=== PATIENT | female | born 1990 | race Caucasian/White ===

== ENCOUNTER 2020-09-08 13:16 | Emergency (ER) | payer MEDICAID, SELFPAY ==
[2020-09-08 13:25] VITALS: BP 107/65; PULSE 87; RESP 18; TEMP 37.1; O2SAT 97
--- NOTE | 2020-09-08 13:30 | DI.US_ITS ---
Exam(s) US OB 1ST TRIMESTER EXAM: US OB 1ST TRIMESTER CLINICAL HISTORY: pos preg test one week ago, now with vaginal bleed. TECHNIQUE: First trimester obstetrical ultrasound was performed. COMPARISON: No exams were available for comparison FINDINGS: There is gestational contents within the cervical canal, including yolk sac and non viable pole . Findings are consistent with incomplete spontaneous . Right ovary measures 2.5 x 1.6 x 1.6 cm. Left ovary measures 2.6 x 1.21.1 cm. Corpus luteal cyst is seen in the right ovary measuring approximately 1.6 x 1.2 cm. There is no free fluid in the adnexal regions nor in the cul-de-sac.. IMPRESSION:: 1. Findings are consistent with ongoing spontaneous . The gestational contents are presently within the endocervical canal. 2. No significant adnexal findings and no free fluid. DATA REPOSITORY:
[2020-09-08 13:52] LABS: Bilirubin Negative (Negative); Blood Trace-intact (Negative); Clarity Clear (Clear); Glucose Negative (Negative); Ketones Negative (Negative); Leukocyte Esterase Negative (Negative); Nitrite Negative (Negative); Urobilinogen 0.2 EU/dL (Up TO 0.2); pH 6.5 (5-8)
[2020-09-08 13:59] LABS: Bacteria Negative HPF (Negative); C & S Indicated? No; Casts Negative LPF (Negative); Crystals Negative HPF (Negative); Epithelial Cells Few HPF (Negative); Mucus Negative (Negative); RBC 0-2 HPF (0-2)
[2020-09-08 14:26] LABS: Abs Immature Grans 0.05 10^3/uL (0.0-0.06); Absolute Eosinophil Count 0.11 10^3/uL (0.0-0.7); Absolute Lymphocyte Count 3.03 10^3/uL (1.2-3.4); Absolute Monocyte Count 0.83 10^3/uL (0.1-0.8); Basophils % 0.2; Eosinophils % 0.9; HGB 12.9 g/dL (11.2-15.7); Immature Grans % 0.4; Lymphocytes % 25.2; MCH 29.8 pg (27.0-33.0); MCHC 33.1 % (32.0-36.0); MCV 90.1 fL (80-95); MPV 11.5 fL (8.0-11.0); Monocytes % 6.9; Neutrophils % 66.4; Nucleated RBC 0 %; Platelet Count 336 10^3/uL (130-400); RBC 4.33 10^6/uL (3.93-5.22); RDW-SD 39.8 fL; WBC 12.01 10^3/uL (4.4-10.8)
[2020-09-08 14:27] LABS: Absolute Basophil Count 0.02 10^3/uL (0.0-0.2); Absolute Neutrophil Count 7.97 10^3/uL (1.2-6.7)
--- NOTE | 2020-09-08 15:29 | ED.GENADUL_ITS ---
Discharge Plan Disposition Patient Disposition: HOME Condition: Good Discharge Details Clinical Impression: Spontaneous Primary Care Provider: Sheba Reina ED Provider: Daly Razo Home Meds and New Rx's Prescriptions: No Action No Known Home Meds RF: 0 Discharge Instructions Additional Instructions: Please follow-up at your scheduled appointment on Tuesday and return should you develop fever, chills, if you go through more than 1 tampon or pad an hour, worsening pain, or with any new or progressing symptoms You may take Tylenol or ibuprofen as needed for discomfort, 650 mg of Tylenol or 600 mg of ibuprofen Discharge Data Discharge Date/Time-TO BE ENTERED AT DEPARTURE: 09/08/20 16:11 Medical Decision Making Patient is hemodynamically stable, she is B+, she has a spontaneous , she is approximately 8 weeks She is made aware of the finding Case discussed with Dr. Quintero who will evaluate the patient. Afebrile, nontoxic Dr. Mosher to evaluate patient at 1559 will see pt in office on Tuesday B+, no indication for rhogam no indication for pelvic exam at this time, reported minimal bleeding with close f/u return precautions discussed no evidence of ectopic noted on US per radiology interpretation, yolk sac and pole without fhr concerning for demise per radiologist and my review Differential Diagnosis Differential Diagnosis: Threatened , miscarriage, subchorionic h emorrhage, ectopic pregnanc Medical Records Medical records reviewed: Yes I reviewed the patient's medical records. Lab Data Lab results reviewed: Yes I reviewed the patient's lab results. HPI General Mode of arrival: ambulatory . Date/Time Provider Initiated Documentation: 09/08/20 13:35 . Limitations to Documentation: no limitations . Information obtained by: patient . HPI Narrative: This 30-year-old female who is otherwise healthy presents with report of some vaginal bleeding that started yesterday. She thinks she is approximately 2 months . She denies any fever or chills. She has some cramping in her lower abdomen. She denies any urinary symptoms. This is her first reported . She states she is bleeding minimally at this time. Related Data Home Medications Medication Instructions Recorded Confirmed Unknown [No Known Home Meds] 09/08/20 09/08/20 Allergies Allergy/AdvReac Type Severity Reaction Status Date / Time apple Allergy Mild Skin Rash Unverified 09/08/20 13:30 Sulfa (Sulfonamide Allergy Unknown Unknown Unverified 09/08/20 13:30 Antibiotics) most soap (Dove is ok) AdvReac Uncoded 09/08/20 13:30 General Stated Complaint: RN DOCUMENTATION TEDDY: 3 Review of Systems Narrative: Review of systems obtained x7 aside from where indicated in HPI [facility] Medical History (Updated 09/08/20 @ 16:05 by TISH Hill) Attention deficit hyperactivity disorder, combined type Cervical dysplasia followed by Jacques Carrillo Mild mental retardation (I.Q. 50-70) Surgical History (Updated 12/27/13 @ 17:08 by Augustine Thornton DO) ganglion cyst excision left wrist. Social History Smoking/Tobacco Use Status: Current every day Smoking risk assessment performed?: Yes Alcohol Intake: former Drug use: Daily Substance use type: marijuana Do you feel safe at home: Yes Do you feel safe in your relationship?: Yes Exam Const General: cooperative Orientation: alert and oriented x3 Resp Effort & Inspection: normal respiratory effort Cardio Rate: regular rate GI Other: Mild lower abdominal tenderness Skin General skin exam: no rashes or lesions noted Neuro General: patient alert and patient oriented x3 Course Vital Signs Vital signs: Vital Signs Temperature 37.1 C 09/08/20 13:25 Pulse 87 09/08/20 13:25 Respiratory Rate 18 09/08/20 13:25 Blood Pressure 107/65 09/08/20 13:25 Pulse Oximetry 97 09/08/20 13:25 Temperature 37.1 C 09/08/20 13:25 Temperature Source Temporal Artery Scan 09/08/20 13:25 Pulse 87 09/08/20 13:25 Respiratory Rate 18 09/08/20 13:25 Respiratory Effort Non-Labored 09/08/20 13:30 Blood Pressure 107/65 09/08/20 13:25 Blood Pressure Position Sitting 09/08/20 13:25 Pulse Oximetry 97 09/08/20 13:25 Oxygen Delivery Method Room Air 09/08/20 13:25 Oxygen Flow Rate 0 09/08/20 13:25 Pain Level 5 09/08/20 13:25 Lab/Test Results Lab/Test Results: Laboratory Tests Range/Units 09/08/20 09/08/20 09/08/20 13:42 14:12 14:12 WBC (4.4-10.8) 10^3/uL 12.01 H RBC (3.93-5.22) 10^6/uL 4.33 Hgb (11.2-15.7) g/dL 12.9 Hct (36.0-46.0) % 39.0 MCV (80-95) fL 90.1 MCH (27.0-33.0) pg 29.8 MCHC (32.0-36.0) % 33.1 RDW (11.7-14.6) % 12.0 Plt Count (130-400) 10^3/uL 336 MPV (8.0-11.0) fL 11.5 H Immature Gran % 0.4 Neutrophils % 66.4 Lymphocytes % 25.2 Monocytes % 6.9 Eosinophils % 0.9 Basophils % 0.2 Nucleated RBC % % 0 Absolute Neutrophils (1.2-6.7) 10^3/uL 7.97 H Absolute Lymphocytes (1.2-3.4) 10^3/uL 3.03 Absolute Monocytes (0.1-0.8) 10^3/uL 0.83 H Absolute Eosinophils (0.0-0.7) 10^3/uL 0.11 Absolute Basophils (0.0-0.2) 10^3/uL 0.02 Urine Color (Yellow) Yellow Urine Clarity (Clear) Clear Urine pH (5-8) 6.5 Ur Specific [place] (1.005-1.025) 1.010 Urine Protein (Negative) mg/dL Negative Urine Ketones (Negative) mg/dL Negative Urine Blood (Negative) Trace-intact H Urine Nitrite (Negative) Negative Urine Bilirubin (Negative) Negative Urine Urobilinogen (Up TO 0.2) EU/dL 0.2 Ur Leukocyte Esterase (Negative) Negative Urine RBC (0-2) HPF 0-2 Urine WBC (0-5) HPF 3-5 Ur Epithelial Cells (Negative) HPF Few Urine Crystals (Negative) HPF Negative Urine Bacteria (Negative) HPF Negative Urine Casts (Negative) LPF Negative Urine Mucus (Negative) Negative Ur Culture Indicated? No Urine Glucose (Negative) mg/dL Negative Patient ABO/Rh B Positive Antibody Screen Negative POC- Test(urine) Positive
[2020-09-08 16:03] LABS: HCG Quant, Pregnancy 14465 mIU/mL (1-3)
[2020-09-08 18:33] LABS: ALT 13 U/L (14-59); AST 9 U/L (15-37); Albumin 3.6 g/dL (3.4-5.0); Alkaline Phosphatase 82 U/L (46-116); Anion Gap 6.6 mmol/L (3-11); BUN 6 mg/dL (7-18); Bilirubin, Total 0.3 mg/dL (0.2-1.0); CO2 30.4 mmol/L (21.0-32.0); CREATININE 0.7 mg/dL (0.55-1.02); Chloride 104 mmol/L (98-107); Glucose 81 mg/dL (74-106); Potassium 3.7 mmol/L (3.5-5.1); Sodium 141 mmol/L (136-145); Total Protein 7.5 g/dL (6.4-8.2)
== END 2020-09-08 16:11 | disposition home or self-care (01) ==
PROVIDERS: Student in an Organized Health Care Education/Training Program; Emergency Provider Physician Assistant; PCP Nurse Practitioner Family
DX: O03.9 Complete or unspecified spontaneous abortion without complication (principal)
CPT/HCPCS: 36415; 80053; 81025; 86850; 86900; 86901; 99284; 76801; 81003; 81015; 84702; 85025; 99283

== ENCOUNTER 2021-05-15 18:45 | Emergency (ER) | payer MEDICAID, SELFPAY ==
[2021-05-15 18:47] VITALS: BP 121/99; PULSE 89; RESP 18; TEMP 36; O2SAT 97
[2021-05-15 19:04] VITALS: RESP 12
[2021-05-15 19:15] VITALS: PULSE 78; O2SAT 98
--- NOTE | 2021-05-15 19:26 | W.ED.GENAD ---
Discharge Plan Disposition Patient Disposition: HOME Condition: Stable Discharge Details Clinical Impression: Accidental overdose Primary Care Provider: Sheba Reina ED Provider: Daly Razo Home Meds and New Rx's Prescriptions: New naloxone [Narcan] 4 mg/actuation spray,non-aerosol 4 mg intranasal Q2-3M PRNQty: 2 0RF Rx Instructions: spray 1 dose into ONE nostril; alternate nostrils w each dose until help arrives Discharge Instructions Additional Instructions: Please work with assistant women's basketball coach We are here if you like to start any medication assisted therapy I am giving you to the [facility] recovery coaches please return should you have new or worsening complaints I have supplied you with Narcan, hopefully we do not continue to use and this medication was not necessary that you have it should you need it Referrals: [facility] [Outside] [facility] [Outside] Sheba Reina [Primary Care Provider] - Discharge Data Discharge Date/Time-TO BE ENTERED AT DEPARTURE: 05/15/21 20:26 Medical Decision Making pt declines MAT initiation, but is willing to speak with [facility] Reconvery Will f/u with pcp has resources with set up return precautions discussed dc'd home with stable vitals, alert, oriented Narcan rx supplied Medical Records Medical records reviewed: Yes I reviewed the patient's medical records. HPI General Date/Time Provider Initiated Documentation: 05/15/21 18:52. HPI Narrative: This 31-year-old female presents status post inhalation overdose. She received Narcan from bystander. EMS was called and transported patient to the emergency department. She denies any chest pain, shortness of breath, dizziness, weakness. She denies any additional illicit drug use. She endorses smoking fentanyl just prior to arrival approximately cough. She denies any chance of . She denies any injuries. Denies any current nausea or vomiting. denies SI/HI. Related Data Home Medications Medication Instructions Recorded Confirmed naloxone 4 mg/actuation nasal 4 mg INTRANASAL Q2-3M PRN #2 ea 05/15/21 spray (Narcan) Previous Rx's Medication Instructions Recorded naloxone 4 mg/actuation nasal 4 mg INTRANASAL Q2-3M PRN #2 ea 05/15/21 spray (Narcan) Allergies Allergy/AdvReac Type Severity Reaction Status Date / Time apple Allergy Mild Skin Rash Unverified 05/15/21 18:51 Sulfa (Sulfonamide Allergy Unknown Unknown Unverified 05/15/21 18:51 Antibiotics) most soap (Dove is ok) AdvReac Uncoded 05/15/21 18:51 General Stated Complaint: OD/Poison TEDDY: 2 Review of Systems All systems reviewed & are unremarkable except as noted in HPI and below PFSH All Active Problems (Updated 05/15/21 @ 19:52 by TISH Hill) Spontaneous (Acute) Accidental overdose (Acute) Medical History (Updated 05/15/21 @ 19:52 by TISH Hill) Attention deficit hyperactivity disorder, combined type Cervical dysplasia followed by Jacques Carrillo Mild mental retardation (I.Q. 50-70) Surgical History (Updated 12/27/13 @ 17:08 by Augustine Thornton DO) ganglion cyst excision left wrist. Social History Smoking/Tobacco Use Status: Current every day Tobacco Type: cigarettes Smoking risk assessment performed?: Yes Alcohol Intake: former Drug use: Daily Substance use type: marijuana Details: fentanyl occasionally Do you feel safe at home: Yes Do you feel safe in your relationship?: Yes Exam Const General: cooperative, comfortable and no acute distress HENMT Head: normal to inspection Eyes Pupils: PERRL Resp Effort & Inspection: normal respiratory effort Auscultation: clear to auscultation bilaterally Cardio Rate: regular rate Rhythm: regular rhythm GI Inspection: normal to inspection Skin General skin exam: no rashes or lesions noted Neuro General: patient alert and patient oriented x3 Course Vital Signs Vital signs: Vital Signs Temperature 36 C L 05/15/21 18:47 Pulse 89 05/15/21 18:47 Respiratory Rate 18 05/15/21 18:47 Blood Pressure 121/99 H 05/15/21 18:47 Pulse Oximetry 97 05/15/21 18:47 Temperature 36 C L 05/15/21 18:47 Temperature Source Temporal Artery Scan 05/15/21 18:47 Pulse 78 05/15/21 19:15 Respiratory Rate 12 05/15/21 19:04 Respiratory Effort Non-Labored 05/15/21 19:04 Respiratory Depth Normal 05/15/21 19:04 Respiratory Pattern Normal 05/15/21 19:04 Blood Pressure 121/99 H 05/15/21 18:47 Blood Pressure Position Sitting 05/15/21 18:47 Pulse Oximetry 98 05/15/21 19:15 Oxygen Delivery Method Room Air 05/15/21 19:15 Oxygen Flow Rate 0 05/15/21 19:15
--- NOTE | 2021-05-15 19:31 | NUR.NOTE ---
Nursing Note: Around 19:35, Absorption And Adsorption Engineer, Inez, arrived to speak with the patient.
[2021-05-15 20:26] VITALS: BP 121/99; PULSE 78; RESP 12; TEMP 36; O2SAT 98
== END 2021-05-15 20:26 | disposition home or self-care (01) ==
PROVIDERS: Emergency Provider Physician Assistant; PCP Nurse Practitioner Family
DX: T40.411A Poisoning by fentanyl or fentanyl analogs, accidental (unintentional), initial encounter (principal)
CPT/HCPCS: 99283

== ENCOUNTER 2021-08-27 17:46 | Emergency (ER) | payer MEDICAID, SELFPAY ==
[2021-08-27 17:48] VITALS: BP 126/112; PULSE 74; RESP 12; TEMP 35.4; O2SAT 95
--- NOTE | 2021-08-27 17:55 | ED.GENADUL_ITS ---
Discharge Plan Disposition Patient Disposition: HOME Condition: Improving Discharge Details Clinical Impression: Odontalgia Primary Care Provider: Sheba Reina ED Provider: Teddy Mcneal Home Meds and New Rx's Prescriptions: New penicillin V potassium 500 mg tablet 500 mg PO TID 10 Days Qty: 30 0RF Continued naloxone [Narcan] 4 mg/actuation spray,non-aerosol 4 mg intranasal Q2-3M PRNQty: 2 0RF Rx Instructions: spray 1 dose into ONE nostril; alternate nostrils w each dose until help arrives Discharge Instructions Instructions: Toothache (ED), Adult Overdose (ED) Additional Instructions: Take penicillin as prescribed until finished. Follow-up with rhythmic gymnastics coach as discussed with them. Return for any acute concerns. Medical Decision Making This is a 31-year-old female brought by EMS after a bystander called them. She had smoked some fentanyl, is unclear of whether she had an altered mental state as she does not remember. She was not given Narcan. She was evaluated by EMS and then transported as she wished to speak to someone regarding recovery services. She states she was not trying to harm her self and she does not have any current depression or thoughts of harming herself or others. Patient underwent medical screening examination. She did have early periapical dental infection that I will treat with penicillin. Patient was evaluated by rhythmic gymnastics coach and a plan was formulated for outpatient follow-up. Patient remained stable and improved. She is appropriate for discharge with a prescription for penicillin. HPI General Mode of arrival: ambulatory . Date/Time Provider Initiated Documentation: 08/27/21 17:47 . Limitations to Documentation: no limitations . Information obtained by: patient and EMS . History of Present Illness 31 year old F presents to the emergency department with the chief complaint of Accidental overdose, described as mild, and it has been now resolved. No relieving factors improve symptom(s), No exacerbating factors reported . Patient notes denies chest pain, cough, headaches and shortness of breath. Patient did receive the following treatments prior to arrival, none Related Data Home Medications Medication Instructions Recorded Confirmed naloxone 4 mg/actuation nasal 4 mg intranasal Q2-3M PRN #2 ea 08/27/21 spray (Narcan) penicillin V potassium 500 mg 500 mg PO TID 10 days #30 tabs 08/27/21 tablet Previous Rx's Medication Instructions Recorded naloxone 4 mg/actuation nasal 4 mg intranasal Q2-3M PRN #2 ea 08/27/21 spray (Narcan) penicillin V potassium 500 mg 500 mg PO TID 10 days #30 tabs 08/27/21 tablet Allergies Allergy/AdvReac Type Severity Reaction Status Date / Time apple Allergy Mild Skin Rash Unverified 08/27/21 17:56 Sulfa (Sulfonamide Allergy Unknown Unknown Unverified 08/27/21 17:56 Antibiotics) most soap (Dove is ok) AdvReac Uncoded 08/27/21 17:56 General TEDDY: 2 Review of Systems Narrative: Denies any complaints except left ear pain and tooth pain. PFSH All Active Problems (Updated 08/27/21 @ 18:08 by Teddy Mcneal MD) Spontaneous (Acute) Odontalgia (Acute) Medical History Attention deficit hyperactivity disorder, combined type Cervical dysplasia followed by Jacques Carrillo Mild mental retardation (I.Q. 50-70) Surgical History ganglion cyst excision left wrist. Social History Smoking/Tobacco Use Status: Current every day Tobacco Type: cigarettes Smoking risk assessment performed?: Yes Alcohol Intake: former Drug use: Daily Substance use type: marijuana and opiates Details: has not had fentanyl in a few months. this is a relapse. Do you feel safe at home: Yes Do you feel safe in your relationship?: Yes Exam Narrative Exam Narrative: GEN: awake, alert, oriented 3. Pleasant, well groomed, interactive. HEAD: Normocephalic, atraumatic ENT: Mucous membranes moist, oropharynx poor dentition, tender left mandibular premolars, tympanic membranes visualized and unremarkable bilaterally,, External ear exam unremarkable EYES: PERRL, EOMI NECK: Full ROM, no RAJ, no menigismus CHEST/RESP: Nontender, clear to auscultation bilateral, no wheeze/rhonchi/rales CARDIOVASCULAR: RRR, no murmur, rub natalie. 2+ Rad pulse bilateral ABDOMEN: Soft, nontender, no mass. +Bowel sounds EXT: Full ROM, no edema, no rash Neuro: Grossly normal neurologic exam, conversant, interactive. Psych: Speech fluent, thoughts congruent, affect normal
[2021-08-27 18:08] VITALS: RESP 12
[2021-08-27 18:10] VITALS: BP 114/67; PULSE 54; PULSE 68; RESP 17; O2SAT 95
[2021-08-27 18:11] VITALS: PULSE 56; RESP 14; O2SAT 98
[2021-08-27 18:20] VITALS: PULSE 57; RESP 15; O2SAT 96
[2021-08-27] MEDS: Penicillin V POTASSIUM 500 MG TAB, 4 TABS/BTL PO (18:23)
[2021-08-27 19:03] VITALS: BP 113/47; PULSE 58; RESP 16; O2SAT 100
== END 2021-08-27 19:12 | disposition home or self-care (01) ==
LOC: ER 19:26
PROVIDERS: Emergency Provider Emergency Medicine; PCP Nurse Practitioner Family
DX: K08.89 Other specified disorders of teeth and supporting structures (principal); K04.7 Periapical abscess without sinus
CPT/HCPCS: 99283

== ENCOUNTER 2022-01-06 18:06 | Emergency (ER) | payer MEDICAID, SELFPAY ==
[2022-01-06] VITALS (22 sets, daily range): BP systolic 104–139; BP diastolic 71–96; PULSE 61–94; RESP 7–26; TEMP 36.7; O2SAT 95–99
--- NOTE | 2022-01-06 18:56 | ED.GENADUL_ITS ---
Discharge Plan Disposition Patient Disposition: AGAINST MEDICAL ADVICE Condition: Stable Discharge Details Clinical Impression: Accidental fentanyl overdose Primary Care Provider: Sheba Reina ED Provider: Enio Pizano Home Meds and New Rx's Prescriptions: Continued naloxone [Narcan] 4 mg/actuation spray,non-aerosol 4 mg intranasal Q2-3M PRNQty: 2 0RF Rx Instructions: spray 1 dose into ONE nostril; alternate nostrils w each dose until help arrives Discharge Instructions Instructions: Adult Overdose (ED) Additional Instructions: It would have appeared as though you accidentally overdosed on fentanyl and responded well to Narcan. As we discussed I would recommend that she stay in the ER for 2-3-hour observations as Narcan can wear off and fentanyl has a longer half-life. You understand this and have elected to leave AGAINST MEDICAL ADVICE. Please follow the instructions given to you by the recovery agent. Please watch for new or worsening symptoms and return immediately to the ER. Lastly, please contact your primary care provider tomorrow to discuss your ER visit and need for outpatient reevaluation. Medical Decision Making Thank you this is a 31-year-old who presents after an accidental fentanyl overdose, received Narcan via EMS and now asymptomatic. Patient states that she has not used drugs in approximately 1 month and relapsed today. She has a therapist but no recovery agent. At this time she has no acute medical concerns or complaints. I do not believe that any laboratory values with change her overall disposition. She is agreeable to speaking with our recovery agent and being observed in the ER professional athletes coach completed her evaluation. Please see her note. Patient is thankful for the recovery agent is excited to follow-up with her as an outpatient Patient is no longer anxious. She appears well, nontoxic. At this time she is requesting discharge. She has not been observed in the ER for more than approximately 1-1/2 hours. We discussed the overall half-life of fentanyl versus Narcan, the possibility of becoming unresponsive once again as the Narcan wears off. She understands this risk but continues to request discharge. She states that she has a safe place to go this evening with people who can monitor her. Patient appears clinically sober, is of sound mind, and based upon my clinical examination has the capacity to make their own decisions. We have offered treatment options and discussed the the risks and benefits of these options and refusing these options, including and/or disability specific to the patient's pathology. Pt is able to discuss and understands the risks and benefits and alternatives of treatment and refusing treatment. The patient still chooses to leave before evaluation and treatment can be completed AGAINST MEDICAL ADVICE. This documentation was generated using [employer] system, please disregard any oddities of phrase or misspellings. Medical Records Medical records reviewed: Yes I reviewed the patient's medical records. HPI General Mode of arrival: EMS . Date/Time Provider Initiated Documentation: 01/06/22 18:10 . Limitations to Documentation: no limitations . Information obtained by: patient and EMS . HPI Narrative: This is a 31-year-old female, reports that she has been clean from fentanyl for approximately 1 month, smokes fentanyl today, friends called EMS when she became unresponsive, EMS gave her Narcan on arrival and she is now at baseline. She reports that overall she is anxious, ashamed of her actions but denies any attempt to harm herself and has no desire to harm others. She denies recent illness or trauma. Denies any other alcohol or drug use. She has a therapist but would be open to speaking with a recovery agent. Related Data Home Medications Medication Instructions Recorded Confirmed naloxone 4 mg/actuation nasal 4 mg intranasal Q2-3M PRN #2 ea 08/27/21 01/06/22 spray (Narcan) Previous Rx's Medication Instructions Recorded naloxone 4 mg/actuation nasal 4 mg intranasal Q2-3M PRN #2 ea 08/27/21 spray (Narcan) Allergies Allergy/AdvReac Type Severity Reaction Status Date / Time apple Allergy Mild Skin Rash Unverified 01/06/22 18:06 Sulfa (Sulfonamide Allergy Unknown Unknown Unverified 01/06/22 18:06 Antibiotics) most soap (Dove is ok) AdvReac Uncoded 01/06/22 18:06 General Stated Complaint: OD/Poison TEDDY: 3 Review of Systems Constitutional Constitutional: Denies fatigue, Denies fever(s), Denies headache(s) and Denies weakness Eyes Eyes: Denies change in vision ENT Ears, Nose, Mouth, and Throat: Denies headache(s) and Denies neck pain Cardiovascular Cardiovascular: Denies chest pain and Denies dyspnea Respiratory Respiratory: Denies cough and Denies dyspnea Gastrointestinal Gastrointestinal: Denies abdominal pain, Denies nausea and Denies vomiting Musculoskeletal Musculoskeletal: Reports back pain (Chronic) and Denies neck pain Integumentary/Breasts Skin/Breast: Denies rash Neurologic Neurologic: Denies headache(s) and Denies weakness Psychiatric Psychiatric: Reports anxiety, Denies homicidal ideation and Denies suicidal ideation Endocrine Endocrine: Denies fatigue PFSH All Active Problems (Updated 01/06/22 @ 19:40 by TISH Huang) Spontaneous (Acute) Accidental fentanyl overdose (Acute) Medical History Attention deficit hyperactivity disorder, combined type Cervical dysplasia followed by Jacques Carrillo Mild mental retardation (I.Q. 50-70) Surgical History ganglion cyst excision left wrist. Social History Smoking/Tobacco Use Status: Current every day Tobacco Type: cigarettes Smoking risk assessment performed?: Yes Alcohol Intake: former Drug use: Daily Substance use type: marijuana and opiates Details: this is a relapse. Do you feel safe at home: Yes Do you feel safe in your relationship?: Yes Exam Const General: cooperative, healthy appearing, comfortable, no acute distress and anxious Orientation: alert, awake and oriented x3 HENMT Head: normal to inspection, normocephalic and atraumatic Face and sinus: normal facial exam Mouth: moist mucous membranes Eyes General: appearance normal, both eyes and all related structures Conjunctivae: conjunctivae normal Neck Neck: normal visual inspection, full ROM, trachea midline and supple Resp Effort & Inspection: normal respiratory effort and able to speak in complete sentences Auscultation: clear to auscultation bilaterally Cardio Rate: regular rate Rhythm: regular rhythm GI Palpation: soft and nontender Back/Spine/Pelvis Back: No back tenderness Skin General skin exam: no rashes or lesions noted Neuro General: patient alert, patient awake, moves all extremities and no focal motor deficits Cognition: normal cognition Speech: speech normal Gait: normal gait Sensory Exam: no sensory deficits noted Extrem General: normal to inspection and full ROM Psych Appearance: grossly normal Mental Status: mental status grossly normal Speech and Movement: speech and movement normal Mood: anxious mood Affect: animated Attitude: cooperative Thought Process: normal Thought Content: no homicidality and suicidality Insight: fair Judgment: fair Course Vital Signs Vital signs: Vital Signs Temperature 36.7 C 01/06/22 18:00 Pulse 74 01/06/22 18:00 Respiratory Rate 16 01/06/22 18:00 Blood Pressure 139/96 H 01/06/22 18:00 Pulse Oximetry 99 01/06/22 18:00 Temperature 36.7 C 01/06/22 18:00 Temperature Source Skin 01/06/22 18:00 Pulse 74 01/06/22 18:00 Respiratory Rate 20 01/06/22 18:16 Respiratory Effort 01/06/22 18:16 Respiratory Depth Normal 01/06/22 18:16 Respiratory Pattern Tachypnea 01/06/22 18:16 Blood Pressure 139/96 H 01/06/22 18:00 Blood Pressure Position Sitting 01/06/22 18:00 Pulse Oximetry 99 01/06/22 18:00 Oxygen Delivery Method Room Air 01/06/22 18:00 Oxygen Flow Rate 0 01/06/22 18:00 Pain Level 6 01/06/22 18:00 Comment 01/06/22 18:00
== END 2022-01-06 19:52 | disposition left against medical advice (07) ==
LOC: ER 19:43
PROVIDERS: Emergency Provider Physician Assistant; PCP Nurse Practitioner Family
DX: T40.411A Poisoning by fentanyl or fentanyl analogs, accidental (unintentional), initial encounter (principal); R41.0 Disorientation, unspecified; Z53.20 Procedure and treatment not carried out because of patient's decision for unspecified reasons
CPT/HCPCS: 99283; 99282

== ENCOUNTER 2022-02-01 17:03 | Emergency (ER) | payer MEDICAID, SELFPAY ==
[2022-02-01 17:09] VITALS: BP 122/92; PULSE 92; RESP 17; TEMP 37; O2SAT 92
[2022-02-01 17:12] VITALS: RESP 18
--- NOTE | 2022-02-01 17:13 | ED.GENADUL_ITS ---
Discharge Plan Disposition Patient Disposition: HOME Condition: Good Discharge Details Chief Complaint: OD/Poison Clinical Impression: Accidental fentanyl overdose Primary Care Provider: Sheba Reina ED Provider: John Waldrop Home Meds and New Rx's Prescriptions: No Action naloxone [Narcan] 4 mg/actuation spray,non-aerosol 4 mg intranasal Q2-3M PRNQty: 2 0RF Rx Instructions: spray 1 dose into ONE nostril; alternate nostrils w each dose until help arrives Discharge Instructions Instructions: Naloxone (Into the nose) Additional Instructions: Please stop using fentanyl. If you continue on this path it will cause premature and disability. Please use the Narcan. If you notice any worsening of your symptoms, or any new symptoms such as vomiting, diarrhea, fever, chills, shortness of breath, chest pain, numbness, weakness, or fainting , please return immediately to the emergency department for reevaluation. Please follow up with your primary care provider as soon as possible for reassessment and reevaluation. As always, it was a pleasure participating in your medical care today. Referrals: Sheba Reina [Primary Care Provider] - Medical Decision Making 32-year-old female with a past medical history of opiate abuse and recent overdose on 01/06/2022 presents today for overdose. Patient states that she was using fentanyl at home, no overdose. She was found unresponsive by her landlord. EMS arrived and when they arrived patient was breathing spontaneously with no difficulty breathing whatsoever. No Narcan was needed. Patient was brought to the ER for further evaluation. She denies any homicidal or suicidal ideations. No other complaints at this time. Exam demonstrates well-appearing female, oxygenation at 92%. Lungs are clear. Will monitor closely and evaluate for signs of respiratory depression. Patient does want a disaster recovery specialist and we will contact him. 6:20 PM Patient has been seen and assessed by the recovery coaches. Reassessment demonstrates excellent oxygenation, no signs of hypoxemia or obtundation what soever. Patient was observed and looks well. Patient stable for discharge. Will give Narcan to go home. Patient has outpatient resources. I have extensively reviewed the treatment plan and discharge instructions with the patient. I have addressed all patient concerns at this time. The patient was made aware of what symptoms to monitor for that would warrant a return to the emergency department. Discussed the plan with the patient, they demonstrate verbal understanding and agreement with our assessment and plan at this time. The documentation in this chart was dictated using [employer] app dictation software. Please excuse any dictation errors. HPI General Date/Time Provider Initiated Documentation: 02/01/22 17:13 . HPI Narrative: 32-year-old female with a past medical history of opiate abuse and recent overdose on 01/06/2022 presents today for overdose. Patient states that she was using fentanyl at home, no overdose. She was found unresponsive by her landlord. EMS arrived and when they arrived patient was breathing spontaneously with no difficulty breathing whatsoever. No Narcan was needed. Patient was brought to the ER for further evaluation. She denies any homicidal or suicidal ideations. No other complaints at this time. Related Data Home Medications Medication Instructions Recorded Confirmed naloxone 4 mg/actuation nasal 4 mg intranasal Q2-3M PRN #2 ea 08/27/21 02/01/22 spray (Narcan) Previous Rx's Medication Instructions Recorded naloxone 4 mg/actuation nasal 4 mg intranasal Q2-3M PRN #2 ea 08/27/21 spray (Narcan) Allergies Allergy/AdvReac Type Severity Reaction Status Date / Time apple Allergy Mild Skin Rash Unverified 02/01/22 17:14 Sulfa (Sulfonamide Allergy Unknown Unknown Unverified 02/01/22 17:14 Antibiotics) most soap (Dove is ok) AdvReac Uncoded 02/01/22 17:14 General Stated Complaint: OD/Poison TEDDY: 3 Review of Systems All systems reviewed & are unremarkable except as noted in HPI and below PFSH All Active Problems (Updated 02/01/22 @ 18:08 by John Waldrop DO) Spontaneous (Acute) Accidental fentanyl overdose (Acute) Medical History Attention deficit hyperactivity disorder, combined type Cervical dysplasia followed by Jacques Carrillo Mild mental retardation (I.Q. 50-70) Surgical History ganglion cyst excision left wrist. Social History Smoking/Tobacco Use Status: Current every day Tobacco Type: cigarettes Smoking risk assessment performed?: Yes Alcohol Intake: former Drug use: Daily Substance use type: marijuana and opiates Details: this is a relapse. Do you feel safe at home: Yes Do you feel safe in your relationship?: Yes Exam Narrative Exam Narrative: 1.Const: Well-nourished, Well-developed, appearing stated age 2.Eyes: PERRL, no conjunctival injection, and symmetrical lids. 3.ENT: Atraumatic external nose and ears. Moist MM. Neck: Symmetric, trachea midline, No thyromegaly. 4.CVS: +S1/S2, No murmurs or gallops. Peripheral pulses 2+ and equal in all extremities. Brisk capillary refill in all extremities. 5.RESP: Unlabored respiratory effort. Clear to auscultation bilaterally. No wheezes rales or rhonchi 6.GI: Soft, Nontender/Nondistended, No hepatosplenomegaly. No guarding or rebound. 7.MSK: Normocephalic/Atraumatic, Extremities w/o deformity or ttp No cyanosis or clubbing, Normal movement of all extremities 8.Skin: Warm, Dry. No rashes or lesions. 9.Neuro: patents examiner II-XII grossly intact. Sensation grossly intact, no focal neurologic deficits. 10.Psych: (AAO) x3. Appropriate mood and affect Course Vital Signs Vital signs: Vital Signs Temperature 37.0 C 02/01/22 17:09 Pulse 92 H 02/01/22 17:09 Respiratory Rate 17 02/01/22 17:09 Blood Pressure 122/92 H 02/01/22 17:09 Pulse Oximetry 92 02/01/22 17:09 Temperature 37.0 C 02/01/22 17:09 Temperature Source Oral 02/01/22 17:09 Pulse 92 H 02/01/22 17:09 Respiratory Rate 17 02/01/22 17:09 Respiratory Effort Non-Labored 02/01/22 17:11 Blood Pressure 122/92 H 02/01/22 17:09 Blood Pressure Position Sitting 02/01/22 17:09 Pulse Oximetry 92 02/01/22 17:09 Oxygen Delivery Method Room Air 02/01/22 17:09 Oxygen Flow Rate 0 02/01/22 17:09 Pain Level 0 02/01/22 17:09
[2022-02-01 18:05] VITALS: PULSE 61; RESP 16; O2SAT 98
== END 2022-02-01 18:15 | disposition home or self-care (01) ==
LOC: ER 20:25
PROVIDERS: Emergency Provider Student in an Organized Health Care Education/Training Program; PCP Nurse Practitioner Family
DX: T40.411A Poisoning by fentanyl or fentanyl analogs, accidental (unintentional), initial encounter (principal); R40.4 Transient alteration of awareness
CPT/HCPCS: 99283

== ENCOUNTER 2022-03-09 17:12 | Emergency (ER) | payer MEDICAID, SELFPAY ==
[2022-03-09 17:13] VITALS: BP 148/88; PULSE 101; RESP 20; TEMP 36.6; O2SAT 98
--- NOTE | 2022-03-09 18:21 | ED.GENADUL_ITS ---
Discharge Plan Disposition Patient Disposition: Home Condition: Improving Discharge Details Clinical Impression: Opioid overdose Primary Care Provider: Sheba Reina ED Provider: Clarence Robert Home Meds and New Rx's Prescriptions: Continued naloxone [Narcan] 4 mg/actuation spray,non-aerosol 4 mg intranasal Q2-3M PRNQty: 2 1RF Rx Instructions: spray 1 dose into ONE nostril; alternate nostrils w each dose until help arrives Discharge Instructions Instructions: Narcotic Safety (ED), Adult Overdose (ED), Narcotic Use Disorder (ED) Additional Instructions: Please continue to check in with the recovery coaches. If you have any new or significant worsening of symptoms please return immediately to the emergency department for reassessment. It is recommended that you do not take any further opioids tonight due to potential prolonged interaction between the drugs. Referrals: Sheba Reina [Primary Care Provider] - Medical Decision Making Patient presenting to the emergency department via EMS for chief complaint of fentanyl overdose. Patient states approximately 90 minutes prior to arrival to the emergency department she smokes and fentanyl. Patient reports passing out from this and then waking up after the event. Patient denies any pain or discomfort or other symptoms at this time. Denies any injury or trauma secondary to overdose. Patient does state that recently she has been doing daily fentanyl. Patient does report that she is interested in speaking with a continuous improvement coach. Physical exam is unremarkable with patient completely awake alert and oriented, no respiratory distress, normal breathing pattern, able to vocalize events appropriately and denies any pain or discomfort along with no obvious physical exam findings. We will continue to monitor patient and have continuous improvement coach come speak with patient. wrestling coach is established plan to have daily check-in's with patient due to high risk of overdosing again but at this time patient remained stable throughout the emergency department stay with no new or worsening symptoms. We will give patient a recovery bag which also includes Narcan. Patient also had prescription sent in for further Narcan. After discussion of diagnosis and plan of care patient has no further needs, questions, or concerns and states clear understanding to return to the emergency department for any worsening symptoms. This documentation was generated using [employer] system, please disregard any oddities of phrase or misspellings. Sign Out No HPI General Mode of arrival: EMS . Date/Time Provider Initiated Documentation: 03/09/22 17:22 . Limitations to Documentation: no limitations . Information obtained by: patient, EMS and RN notes reviewed . History of Present Illness 32 year old F presents to the emergency department with the chief complaint of Fentanyl overdose, described as similar to prior episodes, Quality is described as other (Denies pain or discomfort), Patient started experiencing this minute(s) (90) and it has been now resolved. No relieving factors improve symptom(s), No exacerbating factors reported . Patient notes no other symptoms.. Patient did receive the following treatments prior to arrival, none Related Data Home Medications Medication Instructions Recorded Confirmed naloxone 4 mg/actuation nasal 4 mg intranasal Q2-3M PRN #2 ea 03/09/22 spray (Narcan) Previous Rx's Medication Instructions Recorded naloxone 4 mg/actuation nasal 4 mg intranasal Q2-3M PRN #2 ea 03/09/22 spray (Narcan) Allergies Allergy/AdvReac Type Severity Reaction Status Date / Time apple Allergy Mild Skin Rash Unverified 02/01/22 17:14 Sulfa (Sulfonamide Allergy Unknown Unknown Unverified 02/01/22 17:14 Antibiotics) most soap (Dove is ok) AdvReac Uncoded 02/01/22 17:14 General Stated Complaint: Orthopedic TEDDY: 4 Review of Systems Constitutional Constitutional: Denies chills, Denies fever(s), Denies headache(s) and Denies malaise Eyes Eyes: Denies blurry vision and Denies loss of vision ENT Ears, Nose, Mouth, and Throat: Denies vertigo, Denies dizziness, Denies headache(s), Denies nasal trauma and Denies neck pain Cardiovascular Cardiovascular: Denies chest pain, Reports syncope, Denies lightheadedness and Denies dyspnea Respiratory Respiratory: Denies cough and Denies dyspnea Gastrointestinal Gastrointestinal: Denies abdominal pain, Denies nausea and Denies vomiting Musculoskeletal Musculoskeletal: Denies neck pain Integumentary/Breasts Skin/Breast: Denies wounds Neurologic Neurologic: Denies confusion, Denies vertigo, Denies dizziness, Reports syncope, Denies headache(s) and Denies loss of vision Psychiatric Psychiatric: Reports as per HPI, Denies confusion, Denies homicidal ideation and Denies suicidal ideation PFSH All Active Problems (Updated 03/09/22 @ 18:28 by Clarence Robert NP) Spontaneous (Acute) Opioid overdose (Acute) Medical History Attention deficit hyperactivity disorder, combined type Cervical dysplasia followed by Jacques Carrillo Mild mental retardation (I.Q. 50-70) Surgical History ganglion cyst excision left wrist. Social History Smoking/Tobacco Use Status: Current every day Tobacco Type: cigarettes Smoking risk assessment performed?: Yes Alcohol Intake: former Drug use: Daily Substance use type: marijuana and opiates Details: this is a relapse. Do you feel safe at home: Yes Do you feel safe in your relationship?: Yes Exam Const General: cooperative, no acute distress and not ill appearing Orientation: alert, awake and oriented x3 HENMT Mouth: moist mucous membranes Resp Effort & Inspection: normal respiratory effort, able to speak in complete sentences, normal respiratory pattern and no respiratory distress Auscultation: clear to auscultation bilaterally Cardio Rate: regular rate Rhythm: regular rhythm Heart Sounds: S1 normal and S2 normal Skin General skin exam: no rashes or lesions noted Neuro General: patient alert, patient awake, patient oriented x3, moves all extremities and no focal motor deficits Sensory Exam: no sensory deficits noted Extrem General: normal to inspection, full ROM and capillary refill normal Course Vital Signs Vital signs: Vital Signs Temperature 36.6 C 03/09/22 17:13 Pulse 101 H 03/09/22 17:13 Respiratory Rate 20 03/09/22 17:13 Blood Pressure 148/88 H 03/09/22 17:13 Pulse Oximetry 98 03/09/22 17:13 Temperature 36.6 C 03/09/22 17:13 Temperature Source Tympanic 03/09/22 17:13 Pulse 101 H 03/09/22 17:13 Respiratory Rate 20 03/09/22 17:13 Respiratory Effort 03/09/22 17:28 Blood Pressure 148/88 H 03/09/22 17:13 Blood Pressure Position Sitting 03/09/22 17:13 Pulse Oximetry 98 03/09/22 17:13 Oxygen Delivery Method Room Air 03/09/22 17:13 Oxygen Flow Rate 0 03/09/22 17:13 Pain Level 5 03/09/22 17:13 Lab/Test Results Lab/Test Results: POC- Test(urine) Negative PAWSS Have you Been Recently Intoxicated or Drunk Within the Last 30 days?: No Have you Ever Experienced Previous Episodes of Alcohol Withdrawal?: No Have you ever Experienced Withdrawal Seizures?: No Have you ever Experienced Delirium Tremens(DT)s?: No Have you ever undergone Alcohol Rehabilitation Treatment (i.e, inpt ot outpatient treatment programs)?: No Have you ever Experienced Blackouts?: No Have you ever Combined Alcohol with other Downers within the last 90 days?: No Have you ever Combined Alcohol with any other Substance of Abuse during the last 90 days?: No Positive Blood Alcohol level on Presentation? [PCS.BAL]: No Evidence of Increased Autonomic Activity (i.e. HR>120, tremor, sweating, agitation, nausea)?: No Result: 0
--- NOTE | 2022-03-09 18:26 | NUR.NOTE ---
Nursing Note: This nurse gave patient harm reduction bag and educated her on the use of the different products in the bag. Patient was receptive to information and supplies.
== END 2022-03-09 18:42 | disposition home or self-care (01) ==
PROVIDERS: Emergency Provider Nurse Practitioner Family; PCP Nurse Practitioner Family
DX: T40.411A Poisoning by fentanyl or fentanyl analogs, accidental (unintentional), initial encounter (principal)
CPT/HCPCS: 81025; 99283

== ENCOUNTER 2022-04-08 13:10 | Outpatient (REF) | payer MEDICAID, SELFPAY ==
[2022-04-10 11:17] LABS: COVID-19 RT-PCR UVMMC Result Negative (Negative)
== END 2022-04-08 13:11 | disposition home or self-care (01) ==
LOC: LBN 13:10
PROVIDERS: PCP Nurse Practitioner Family; Visit Provider Physician Assistant Medical
DX: R05.8 Other specified cough (principal); Z20.822 Contact with and (suspected) exposure to COVID-19; J02.9 Acute pharyngitis, unspecified
CPT/HCPCS: U0003; 87081

== ENCOUNTER 2022-09-30 10:40 | Emergency (ER) | payer MEDICAID, SELFPAY ==
[2022-09-30 11:10] VITALS: BP 103/73; PULSE 81; RESP 16; TEMP 36.6; O2SAT 100
--- NOTE | 2022-09-30 11:29 | W.ED.GENAD ---
Discharge Plan Disposition Patient Disposition: Home Condition: Stable Discharge Details Clinical Impression: Opioid use disorder Primary Care Provider: Sheba Reina ED Provider: Mykel Puri Home Meds and New Rx's Prescriptions: Continued naloxone [Narcan] 4 mg/actuation spray,non-aerosol 4 mg intranasal Q2-3M PRNQty: 2 1RF Patient Comments: does not take Rx Instructions: spray 1 dose into ONE nostril; alternate nostrils w each dose until help arrives Discharge Instructions Additional Instructions: Please go directly to [facility]. The [facility] team is expecting you now. Please contact your primary care physician to arrange follow-up. Return to the ER immediately for any worsening or new concerning symptoms Referrals: [facility] [Outside] Discharge Data Discharge Date/Time-TO BE ENTERED AT DEPARTURE: 09/30/22 11:32 Medical Decision Making 32-year-old female with opioid use disorder here seeking that treatment. Medical screening exam was performed and no emergent medical condition identified. I think the patient would be best served at [facility] today. I called and spoke with Dr. Kate and discussed ED presentation course, she agrees to see the patient today. Patient discharged to follow-up at [facility]. HPI General Mode of arrival: ambulatory. Date/Time Provider Initiated Documentation: 09/30/22 10:42. Limitations to Documentation: no limitations. Information obtained by: patient. History of Present Illness 32 year old F presents to the emergency department with the chief complaint of opioid withdrawal , described as mild, Quality is described as constant, Patient started experiencing this day(s) (1) and it has been constant. No relieving factors improve symptom(s), No exacerbating factors reported . Patient notes no other symptoms.. Patient did receive the following treatments prior to arrival, none HPI Narrative: 32-year-old female with opioid use disorder here seeking MAT. Apparently contacted [facility] and was given appointment at later date and would like to initiate treatment as soon as possible. Related Data Home Medications Medication Instructions Recorded Confirmed naloxone 4 mg/actuation nasal 4 mg intranasal Q2-3M PRN #2 ea 03/09/22 spray (Narcan) Previous Rx's Medication Instructions Recorded naloxone 4 mg/actuation nasal 4 mg intranasal Q2-3M PRN #2 ea 03/09/22 spray (Narcan) Allergies Allergy/AdvReac Type Severity Reaction Status Date / Time apple Allergy Mild Skin Rash Unverified 09/30/22 11:13 Sulfa (Sulfonamide Allergy Unknown Unknown Unverified 09/30/22 11:13 Antibiotics) most soap (Dove is ok) AdvReac Uncoded 09/30/22 11:13 General Stated Complaint: GenMedical TEDDY: 4 Review of Systems Cardiovascular Cardiovascular: Denies chest pain PFSH All Active Problems Spontaneous (Acute) Opioid use disorder (Acute) Medical History Attention deficit hyperactivity disorder, combined type Cervical dysplasia followed by Jacques Carrillo Mild mental retardation (I.Q. 50-70) Surgical History ganglion cyst excision left wrist. Social History Smoking/Tobacco Use Status: Current every day Tobacco Type: cigarettes Smoking risk assessment performed?: Yes Alcohol Intake: former Drug use: Daily Substance use type: marijuana and opiates Details: this is a relapse. Do you feel safe at home: Yes Do you feel safe in your relationship?: Yes Exam Const General: cooperative and no acute distress Orientation: alert and awake HENMT Head: normocephalic and atraumatic Mouth: moist mucous membranes Eyes Conjunctivae: normal conjunctivae Sclera: normal sclerae EOM: EOM intact bilaterally GI Palpation: no masses Neuro General: patient alert, patient awake and tone normal Cognition: normal cognition Psych Appearance: grossly normal Mental Status: mental status grossly normal Course Vital Signs Vital signs: Vital Signs Temperature 36.6 C 09/30/22 11:10 Pulse 81 09/30/22 11:10 Respiratory Rate 16 09/30/22 11:10 Blood Pressure 103/73 09/30/22 11:10 Pulse Oximetry 100 09/30/22 11:10 Temperature 36.6 C 09/30/22 11:10 Temperature Source Skin 09/30/22 11:10 Pulse 81 09/30/22 11:10 Respiratory Rate 16 09/30/22 11:10 Blood Pressure 103/73 09/30/22 11:10 Pulse Oximetry 100 09/30/22 11:10 Oxygen Delivery Method Room Air 09/30/22 11:10 Oxygen Flow Rate 0 09/30/22 11:10 Pain Level 7 09/30/22 11:10 Comment generalized body 09/30/22 11:10
== END 2022-09-30 11:32 | disposition home or self-care (01) ==
PROVIDERS: Emergency Provider Student in an Organized Health Care Education/Training Program; PCP Nurse Practitioner Family
DX: F11.90 Opioid use, unspecified, uncomplicated (principal)
CPT/HCPCS: 99281; 99282

== ENCOUNTER 2024-01-22 14:56 | Emergency (ER) | payer MEDICAID, SELFPAY ==
[2024-01-22 15:02] VITALS: BP 124/71; PULSE 76; RESP 15; TEMP 36.4; O2SAT 97
--- NOTE | 2024-01-22 15:40 | W.ED.GENAD ---
Discharge Plan Disposition Patient Disposition: Home Condition: Good Discharge Details Clinical Impression: Abscess of left thigh Primary Care Provider: Sheba Reina ED Provider: John Waldrop Home Meds and New Rx's Prescriptions: New clindamycin HCl 150 mg capsule 450 mg PO Q6H 7 Days Qty: 84 0RF No Action methadone 10 mg/5 mL solution 95 mg PO DAILY naloxone [Narcan] 4 mg/actuation spray,non-aerosol 4 mg intranasal Q2-3M PRNQty: 2 1RF Patient Comments: does not take Rx Instructions: spray 1 dose into ONE nostril; alternate nostrils w each dose until help arrives Discharge Instructions Instructions: Abscess Incision and Drainage ED Additional Instructions: At this time you had an abscess on your leg that we are able to incise and drain. We did place packing in it. This will stay in for the next few days. Please come back 7 days from now to have the packing taken out or changed. If it falls out on its own, there is no need to replace it. Please take the antibiotic as directed to help fight the infection. Please do not soak your wound or submerge it under water. If you notice any worsening of your symptoms, or any new symptoms such as spreading redness, vomiting, diarrhea, fever, chills, shortness of breath, chest pain, numbness, weakness, or fainting , please return immediately to the emergency department for reevaluation. Please follow up with your primary care provider as soon as possible for reassessment and reevaluation. As always, it was a pleasure participating in your medical care today. Referrals: Sheba Reina [Primary Care Provider] - Discharge Data Discharge Date/Time-TO BE ENTERED AT DEPARTURE: 01/22/24 16:54 HPI General Date/Time Provider Initiated Documentation: 01/22/24 14:59. HPI Narrative: This is a 34-year-old female with a past medical history of methadone use, previous drug use, who presents today for an abscess on her left thigh. Patient is sleeping in a tent, and states that she had a red vamsi on her posterior thigh about a week ago on the left-hand side. It is gotten worse. It is started draining over the last 24 to 48 hours. She admits to pain and tenderness in that area. She denies any numbness tingling or weakness. No fever or chills. No other complaints at this time. She denies any IV drug use in the legs. Related Data Home Medications ?Medication ?Instructions ?Recorded ?Confirmed naloxone 4 mg/actuation nasal 4 mg intranasal Q2-3M PRN #2 ea 03/09/22 01/22/24 spray (Narcan) clindamycin HCl 150 mg capsule 450 mg (3 x 150 mg) PO Q6H 7 days 01/22/24 #84 caps methadone 10 mg/5 mL oral solution 95 mg PO DAILY 01/22/24 01/22/24 Previous Rx's ?Medication ?Instructions ?Recorded naloxone 4 mg/actuation nasal 4 mg intranasal Q2-3M PRN #2 ea 03/09/22 spray (Narcan) clindamycin HCl 150 mg capsule 450 mg (3 x 150 mg) PO Q6H 7 days 01/22/24 #84 caps Allergies Allergy/AdvReac Type Severity Reaction Status Date / Time apple Allergy Mild Skin Rash Unverified 01/22/24 15:07 Sulfa (Sulfonamide Allergy Unknown Unknown Unverified 01/22/24 15:07 Antibiotics) most soap (Dove is ok) AdvReac Skin Rash Uncoded 01/22/24 15:07 General Stated Complaint: RashLesion TEDDY: 4 Review of Systems All systems reviewed & are unremarkable except as noted in HPI and below Exam Narrative Exam Narrative: 1.Const: Well-nourished, Well-developed, appearing stated age 2.Eyes: PERRL, no conjunctival injection, and symmetrical lids. 3.ENT: Atraumatic external nose and ears. Moist MM. Neck: Symmetric, trachea midline, No thyromegaly. 4.CVS: +S1/S2, Peripheral pulses 2+ and equal in all extremities. Brisk capillary refill in all extremities. 5.RESP: Unlabored respiratory effort. Clear to auscultation bilaterally. No wheezes rales or rhonchi 6.GI: Soft, Nontender/Nondistended, No hepatosplenomegaly. No guarding or rebound. 7.MSK: Normocephalic/Atraumatic, Extremities w/o deformity or ttp No cyanosis or clubbing, Normal movement of all extremities 8.Skin: Warm, Dry. Left thigh demonstrates a large abscess with firmness and induration in the center with a diameter of about 3 to 4 cm, active mild drainage. Erythema surrounding it with a diameter of roughly 6 cm. No subcutaneous crepitus. 9.Neuro: traffic control signaler II-XII grossly intact. Sensation grossly intact, no focal neurologic deficits. 10.Psych: (AAO) x3. Appropriate mood and affect Course Vital Signs Vital signs: Vital Signs Temperature 36.4 C L 01/22/24 15:02 Pulse 76 01/22/24 15:02 Respiratory Rate 15 01/22/24 15:02 Blood Pressure 124/71 01/22/24 15:02 Pulse Oximetry 97 01/22/24 15:02 Temperature 36.4 C L 01/22/24 15:02 Temperature Source Tympanic 01/22/24 15:02 Pulse 76 01/22/24 15:02 Respiratory Rate 15 01/22/24 15:02 Respiratory Effort Normal 01/22/24 15:06 Blood Pressure 124/71 01/22/24 15:02 Blood Pressure Position Sitting 01/22/24 15:02 Pulse Oximetry 97 01/22/24 15:02 Oxygen Delivery Method Room Air 01/22/24 15:02 Oxygen Flow Rate 0 01/22/24 15:02 Procedures Abscess I/D Site: Lower Extremity Side (if applicable): Left Local Anesthetic: Lidocaine 1% and With Epi Amount of anesthesia used (mL): 18 Technique: Incised with #11 Blade Amount of fluid expressed (mL): 5 Irrigation: Yes Packing used?: Iodoform Medical Decision Making This is a 34-year-old female with a past medical history of methadone use, previous drug use, who presents today for an abscess on her left thigh. Patient is sleeping in a tent, and states that she had a red vamsi on her posterior thigh about a week ago on the left-hand side. It is gotten worse. It is started draining over the last 24 to 48 hours. She admits to pain and tenderness in that area. She denies any numbness tingling or weakness. No fever or chills. No other complaints at this time. She denies any IV drug use in the legs. Exam demonstrates a large abscess on the left posterior thigh. Mild drainage already present, however bedside ultrasound shows area of cobblestoning and fluid collection. Concern for abscess. No evidence of Necrotizing fasciitis. Will give clindamycin, incise and drain. Patient had abscess incised and drained, about 5 mL of fluid was removed. Patient tolerated this very well. It was packed with iodoform gauze. She will be given a prescription for clindamycin at home. Discussed red flags which to return and the importance of return in 7 days for removal of the gauze. I have extensively reviewed the treatment plan and discharge instructions with the patient. I have addressed all patient concerns at this time. The patient was made aware of what symptoms to monitor for that would warrant a return to the emergency department. Discussed the plan with the patient, they demonstrate verbal understanding and agreement with our assessment and plan at this time. The documentation in this chart was dictated using [employer] dictation software. Please excuse any dictation errors. Quality:SDOH Health Related Social Needs: No Data to Display PFSH All Active Problems (Updated 01/22/24 @ 16:37 by John Waldrop DO) Abscess of left thigh (Acute) Spontaneous (Acute) Medical History Cervical dysplasia followed by [facility] Carrillo Mild mental retardation (I.Q. 50-70) Attention deficit hyperactivity disorder, combined type Surgical History ganglion cyst excision left wrist. Social History Smoking/Tobacco Use Status: Current every day Tobacco Type: cigarettes Smoking risk assessment performed?: Yes Alcohol Intake: former Drug use: Daily Substance use type: marijuana and opiates Details: this is a relapse. Do you feel safe at home: Yes Do you feel safe in your relationship?: Yes POCUS Exam (ED) Limited Soft Tissue Exam DATE OF EXAM: 01/22/24 TIME OF EXAM: 19:09 PROVIDER THAT PERFORMED THE STUDY: John Waldrop IS THIS A REPEAT EXAM DURING THIS ENCOUNTER: No LOCATION OF EXAM: Lower extremity/left REASON FOR EXAM: Abscess VISUALIZED STRUCTURES: Skin and Subcutaneous tissue PERTINENT FINDINGS/IMPRESSION: Abscess Location/details of abscess: left thigh and Cellulitis left thigh . Exam Complete
[2024-01-22] MEDS: Lidocaine 1% Multi-Dose W/EPI 1/100,000 50 ML VIAL (15:41)
== END 2024-01-22 16:54 | disposition home or self-care (01) ==
LOC: ER 16:51
PROVIDERS: Emergency Provider Student in an Organized Health Care Education/Training Program; PCP Nurse Practitioner Family
DX: L02.416 Cutaneous abscess of left lower limb (principal)
CPT/HCPCS: 10061; 76882; 99284; J2004

== ENCOUNTER 2024-01-30 16:29 | Emergency (ER) | payer MEDICAID, SELFPAY ==
[2024-01-30 16:29] VITALS: BP 100/67; PULSE 70; RESP 16; TEMP 36.7; O2SAT 98
--- NOTE | 2024-01-30 16:37 | ED.GENADUL_ITS ---
Discharge Plan Disposition Patient Disposition: Home Condition: Stable Discharge Details Clinical Impression: Cellulitis of left thigh Primary Care Provider: Sheba Reina ED Provider: John Bonilla Home Meds and New Rx's Prescriptions: New clindamycin HCl 150 mg capsule 450 mg PO TID 7 Days Qty: 63 0RF mupirocin 2 % ointment 1 applic topical BID Qty: 15 0RF Rx Instructions: apply to wound twice per day with dressing changes chlorhexidine gluconate 4 % liquid 1 applic topical ONCE Qty: 3800 0RF Rx Instructions: use as soap in shower twice per day for 5 days; then use intermittently every third day once per day to decolonize bacteria ondansetron 4 mg tablet,disintegrating 4 mg PO Q6H PRNQty: 30 0RF Rx Instructions: take 1 tablet three times per day as needed for nausea Continued methadone 10 mg/5 mL solution 95 mg PO DAILY naloxone [Narcan] 4 mg/actuation spray,non-aerosol 4 mg intranasal Q2-3M PRNQty: 2 1RF Patient Comments: does not take Rx Instructions: spray 1 dose into ONE nostril; alternate nostrils w each dose until help arrives Discharge Instructions Instructions: Chlorhexidine Gluconate (Topical), Clindamycin (Systemic), Mupirocin, Ondansetron, Cellulitis (Skin Infection), Adult ED Additional Instructions: You were seen in the emergency department for the continued cellulitic infection of a former abscess to your left thigh, this is not likely a spider bite but just a staph infection from your past IV drug use, your body is likely colonized with bacteria, I have prescribed you a special soap called chlorhexidine to use twice per day for 5 days and then once every third day intermittently to help decolonize yourself from bacteria. You need to change the dressings on this wound daily twice and apply the prescription strength mupirocin ointment to the wound with each dressing change. You stated that the clindamycin was making you sick, do not take this medication on an empty stomach, I have also provided you an antinausea tablet that dissolves under your tongue to take 20 to 30 minutes before taking your antibiotic. 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 Please return to the emergency department for severe increase in redness around the wounds, red streaking spreading up your leg, fever, weakness. Referrals: Sheba Reina [Primary Care Provider] - Discharge Data Discharge Date/Time-TO BE ENTERED AT DEPARTURE: 01/30/24 17:15 HPI General Date/Time Provider Initiated Documentation: 01/30/24 16:37 . HPI Narrative: 34 year-old female presents to ED today by POV/ambulating with a chief complaint of recheck of L thigh abscess- has stopped taking her clindamycin, took 5 days worth, stopped 3-4 days ago with onset for weeks. Quality described as mild redness, another red bump popped up near the former abscess, no radiation to red streaking, fever, nausea/vomiting, weakness, chest pain, shortness of breath, drainage of pus. Severity is described as moderate. Palliating factors include nothing specific. Provoking factors include nothing specific. Events leading up to the incident/Associated Symptoms: Patient has history of IVDU. Patient not anticoagulated. Related Data Home Medications ?Medication ?Instructions ?Recorded ?Confirmed naloxone 4 mg/actuation nasal 4 mg intranasal Q2-3M PRN #2 ea 03/09/22 01/30/24 spray (Narcan) methadone 10 mg/5 mL oral solution 95 mg PO DAILY 01/22/24 01/30/24 chlorhexidine gluconate 4 % 1 applic topical ONCE #3,800 mL 01/30/24 topical liquid clindamycin HCl 150 mg capsule 450 mg (3 x 150 mg) PO TID 01/30/24 cellulitis 7 days #63 caps mupirocin 2 % topical ointment 1 applic topical BID wound 01/30/24 infection #15 grams ondansetron 4 mg disintegrating 4 mg PO Q6H PRN #30 tabs 01/30/24 tablet Previous Rx's ?Medication ?Instructions ?Recorded naloxone 4 mg/actuation nasal 4 mg intranasal Q2-3M PRN #2 ea 03/09/22 spray (Narcan) chlorhexidine gluconate 4 % 1 applic topical ONCE #3,800 mL 01/30/24 topical liquid clindamycin HCl 150 mg capsule 450 mg (3 x 150 mg) PO TID 01/30/24 cellulitis 7 days #63 caps mupirocin 2 % topical ointment 1 applic topical BID wound 01/30/24 infection #15 grams ondansetron 4 mg disintegrating 4 mg PO Q6H PRN #30 tabs 01/30/24 tablet Allergies Allergy/AdvReac Type Severity Reaction Status Date / Time apple Allergy Mild Skin Rash Unverified 01/30/24 16:33 Sulfa (Sulfonamide Allergy Unknown Unknown Unverified 01/30/24 16:33 Antibiotics) most soap (Dove is ok) AdvReac Skin Rash Uncoded 01/30/24 16:33 General Stated Complaint: Cellulitis TEDDY: 3 Review of Systems All systems reviewed & are unremarkable except as noted in HPI and below Exam Narrative Exam Narrative: GENERAL APPEARANCE: Well-nourished, non-toxic, awake and alert, atraumatic, no acute distress. SKIN: Warm, pink, dry, 1 x 2cm open ulceration at the left mid lateral thigh, there is another small maculopapular red bump likely developing early staph infection, no lymphadenitis HEAD: Normocephalic, atraumatic, normal hair distribution for gender/age. EYES: Normal conjunctiva, no exudates on lids/lashes. ENT: Nares patent, no circumoral cyanosis, no facial swelling NECK: Supple, trachea midline, painless cervical ROM. LUNGS/CHEST: Non-labored respirations, normal A/P diameter, symmetrical expansion, no chest wall deformity HEART (CV/PV): No peripheral edema, no JVD. ABDOMEN: Soft, non-distended, no guarding. MSK: Normal ROM, no swelling/deformity to bilateral UEs or LEs, moving all extremities without weakness, no cyanosis, spine midline without tenderness, normal curvature. NEURO: Mental Status AAOx4 - alert to person, place, time, events No facial droop, no forehead involvement. Motor: No focal weakness - strength 5/5 in bilateral UEs and LEs, proximal and distal, symmetric. Sensory: sensation intact to light touch globally. Gait normal: patient ambulated without ataxia into ED room. PSYCH: euthymic, cooperative, pleasant, appropriate speech Course Vital Signs Vital signs: Vital Signs Temperature 36.7 C 01/30/24 16:29 Pulse 70 01/30/24 16:29 Respiratory Rate 16 01/30/24 16:29 Blood Pressure 100/67 01/30/24 16:29 Pulse Oximetry 98 01/30/24 16:29 Temperature 36.7 C 01/30/24 16:29 Temperature Source Oral 01/30/24 16:29 Pulse 70 01/30/24 16:29 Respiratory Rate 16 01/30/24 16:29 Blood Pressure 100/67 01/30/24 16:29 Blood Pressure Position Sitting 01/30/24 16:29 Pulse Oximetry 98 01/30/24 16:29 Oxygen Delivery Method Room Air 01/30/24 16:29 Oxygen Flow Rate 0 01/30/24 16:29 Pain Level 5 01/30/24 16:29 Medical Decision Making This dictation utilizes [id number] dictation software and may contain unedited grammatical errors. 34 year-old female presents to ED today by POV/ambulating with a chief complaint of recheck of L thigh abscess- has stopped taking her clindamycin, took 5 days worth, stopped 3-4 days ago with onset for weeks. Quality described as mild redness, another red bump popped up near the former abscess, no radiation to red streaking, fever, nausea/vomiting, weakness, chest pain, shortness of breath, drainage of pus. Severity is described as moderate. Palliating factors include nothing specific. Provoking factors include nothing specific. Events leading up to the incident/Associated Symptoms: Patient has history of IVDU. Patients' me dical history: Noncontributory. Family and social history: Noncontributory. Pertinent exam findings / vital signs include 1 x 2cm open ulceration at the left mid lateral thigh, there is another small maculopapular red bump likely developing early staph infection, no lymphadenitis, nontoxic vitals. Differential / pathologies of concern include abscess, cellulitis. Diagnostic studies of: -None. Interventions of: -Rx for more clindamycin so she could take a full 10-day course, Rx for mupirocin, Rx chlorhexidine soap. ED Course/Assessment/Plan: 34-year-old female with a draining left thigh abscess feels that is getting worse, she has not performing proper wound care, I spent considerable amount of time in patient education talking about decolonization with chlorhexidine soap, changing the dressing twice a day with topical mupirocin and restarting her clindamycin, I counseled her that some mild nausea is a side effect of antibiotics and she should take them with food, I did provide Zofran to take 20 to 30 minutes before antibiotic doses, strict return criteria for any signs of systemic illness like fever, red streaking spreading outward from the area, severe increase in pain. Findings not consistent with sepsis. Disposition of cellulitis of left thigh. Patient verbalized understanding of the plan and return to ED criteria and engaged in shared decision making. Medical Records Medical records reviewed: Yes I reviewed the patient's medical records. Quality:SDOK Health Related Social Needs: Health related social needs inadequate housing(Z59.1), housing instability, housed, with risk of homelessness(Z59.811), food insecurity(Z59. 41), transportation insecurity(Z59.82), material hardship(utilities)(Z59.87), problem related to primary support group(Z63.9) PFSH All Active Problems (Updated 01/30/24 @ 16:45 by TISH Castorena) Cellulitis of left thigh (Acute) Abscess of left thigh (Acute) Spontaneous (Acute) Medical History Cervical dysplasia followed by Jacques Carrillo Mild mental retardation (I.Q. 50-70) Attention deficit hyperactivity disorder, combined type Surgical History ganglion cyst excision left wrist. Social History Smoking/Tobacco Use Status: Current every day Tobacco Type: cigarettes Smoking risk assessment performed?: Yes Alcohol Intake: former Drug use: Daily Substance use type: marijuana and opiates Details: this is a relapse. Housing: homeless Do you feel safe at home: Yes Do you feel safe in your relationship?: Yes
[2024-01-30 16:53] VITALS: BP 100/67; PULSE 70; RESP 16; TEMP 36.7; O2SAT 98
[2024-01-30 17:15] VITALS: BP 100/77; PULSE 70; RESP 18; TEMP 36.9; O2SAT 98
== END 2024-01-30 17:15 | disposition home or self-care (01) ==
PROVIDERS: Emergency Provider Physician Assistant; PCP Nurse Practitioner Family
DX: L03.116 Cellulitis of left lower limb (principal); F11.20 Opioid dependence, uncomplicated; F17.210 Nicotine dependence, cigarettes, uncomplicated
CPT/HCPCS: 99283

== ENCOUNTER 2024-09-25 15:18 | Emergency (ER) | payer MEDICAID, SELFPAY ==
[2024-09-25 15:30] VITALS: BP 126/76; PULSE 77; RESP 18; TEMP 36.7; O2SAT 94
--- NOTE | 2024-09-25 15:45 | DI.CT_ITS ---
Exam(s) CT CHEST/ABD/PEL W EXAM: CT CHEST/ABD/PEL W CLINICAL HISTORY: TRAUMA. TECHNIQUE: Imaging Protocol: Axial computed tomography images with coronal and sagittal reformatted images were created and reviewed. Computer aided detection (CAD) was utilized. CONTRAST MATERIAL: Intravenous: Omnipaque 350 Contrast volume:100 ml Oral: / no COMPARISON: CR ABDOMEN 2 VIEW FLAT, UPRIGHT from 12/23/2013 CR CHEST 2 VIEWS PA,LAT from 12/23/2013 FINDINGS: CHEST: Pulmonary parenchyma: No consolidation. No dominant measurable mass. Tracheobronchial tree: No bronchiectasis. No mucous plugging.No bronchial wall thickening. Pleura: No effusion or pneumothorax. Mediastinum: Within normal limits. Pulmonary arteries: No visible emboli. Cardiovascular: No pericardial effusion. Thoracic aorta non-dilated. Bones: Unremarkable for age. No lytic or blastic lesions.No compression fractures. Soft tissues: Unremarkable. ABDOMEN and PELVIS: Mild streak artifact related to patient arm positioning. Liver: Normal density. No suspicious mass. Gallbladder and biliary tract: No evidence of stones or wall thickening. No biliary dilatation. Pancreas: Normal density, no abnormal calcifications or inflammatory process. Spleen: Normal. Kidneys: Normal size, contour and axis. No radiodense stones. No obstructive uropathy. No suspicious masses seen. Adrenal glands: No masses seen. Aorta: Abdominal portion non-dilated. Lymph nodes: Within normal limits. Soft tissues: Metallic density noted in the subcutaneous fat just superficial to the lower chest wall, upper abdominal wall oblique muscles. This was present on the 2014 plain films. Bladder: Unremarkable. Nearly empty. Bowel: No obstruction or bowel wall thickening. Peritoneal cavity: No ascites. No focal collection. No mesenteric inflammatory response. No free air. Bones: Unremarkable for age. Reproductive organs: Unremarkable for age. IMPRESSION: No acute abnormality in the chest, abdomen or pelvis. RADIATION DOSE DELIVERED: 528.26mGy.cm Total DLP DATA REPOSITORY: All CT scans at this facility are submitted to the National Radiology Data Registry (NRDR) Dose Index Registry (DIR) with the [employer] ([employer]). RADIATION OPTIMIZATION: All CT scans at this facility use at least one of these dose optimization techniques: automated exposure control; mA and/or kV adjustment per patient size (includes targeted exams where dose is matched to clinical indication); or iterative reconstruction.
--- NOTE | 2024-09-25 15:45 | DI.CT_ITS ---
Exam(s) CT HEAD CERVICAL SPINE WO EXAM: CT HEAD CERVICAL SPINE WO CLINICAL HISTORY: TRAUMA. TECHNIQUE: Imaging Protocol: Axial computed tomography images with coronal and sagittal reformatted images were created and reviewed COMPARISON: No exams were available for comparison FINDINGS: Head CT Ventricles and Extra axial spaces: Normal in size and morphology for the patient's age. Hemorrhage: None. Cerebral parenchyma: No evidence of mass or acute infarct. Midline shift: None. Brainstem/Cerebellum: Normal. Calvarium: Normal. Visualized Paranasal sinuses/Mastoids: Mucous retention both maxillary sinuses. Soft tissues: Unremarkable. Cervical Spine CT BONES: Vertebral body heights are maintained. Alignment is normal. There is no evidence of acute fracture. No significant degenerative disc changes and facet degenerative changes are seen . SOFT TISSUES: No paraspinal hematoma. The airway appears intact. No pneumothorax is seen at the lung apices. IMPRESSION: Head CT: No acute intracranial abnormality. Maxillary sinus disease. C-spine CT: No acute abnormality. RADIATION DOSE DELIVERED: 1,270mGy.cm Total DLP DATA REPOSITORY: All CT scans at this facility are submitted to the National Radiology Data Registry (NRDR) Dose Index Registry (DIR) with the [employer] (ACR). RADIATION OPTIMIZATION: All CT scans at this facility use at least one of these dose optimization techniques: automated exposure control; mA and/or kV adjustment per patient size (includes targeted exams where dose is matched to clinical indication); or iterative reconstruction.
[2024-09-25] MEDS: Normal Saline - Diluent 50 ML VIAL IJ (15:52)
[2024-09-25] MEDS: Omnipaque 350 MG/ML 100 ML BTL IJ (15:53)
[2024-09-25 16:01] LABS: Abs Immature Grans 0.05 10^3/uL (0.0-0.06); HCT 38.3 % (36.0-46.0); HGB 12.7 g/dL (11.2-15.7); Immature Grans % 0.4 %; MCH 29.9 pg (27.0-33.0); MCHC 33.2 % (32.0-36.0); MCV 90 fL (80-95); MPV 11.3 fL (8.0-11.0); Platelet Count 296 10^3/uL (130-400); RBC 4.25 10^6/uL (3.93-5.22); RDW 12.5 % (11.7-14.6); RDW-SD 40.9 fL; WBC 11.53 10^3/uL (4.4-10.8)
[2024-09-25 16:21] LABS: HCG Qual (Serum) Negative
[2024-09-25 16:22] LABS: ALT 17 U/L (14-59); AST 27 U/L (15-37); Albumin 3.8 g/dL (3.4-5.0); Alkaline Phosphatase 97 U/L (46-116); Anion Gap 8.0 mmol/L (3-11); BUN 5 mg/dL (7-18); Bilirubin, Total 0.6 mg/dL (0.2-1.0); CO2 29.0 mmol/L (21.0-32.0); Calcium 9.3 mg/dL (8.5-10.1); Chloride 103 mmol/L (98-107); Estimated GFR 127.72 (mL/min/1.73m2); Glucose 90 mg/dL (74-106); Lipase 26 U/L (<78); Magnesium 2.1 mg/dL (1.8-2.4); Potassium 4.1 mmol/L (3.5-5.1); Sodium 140 mmol/L (136-145); Total Protein 7.7 g/dL (6.4-8.2)
[2024-09-25] MEDS: Diph,Pertuss(Acell),Tet Vac/Pf 0.5 ML SYR IM (16:28)
[2024-09-25 16:41] LABS: INR 1.0 (0.9-1.1); PTT Activated 25.0 sec (20.6-30.2); Prothrombin Time 10.5 sec (9.1-11.1)
[2024-09-25] MEDS: Mupirocin 2% Oint. 22 GM TUBE TP (17:15)
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
== END 2024-09-25 17:16 | disposition home or self-care (01) ==
LOC: ER 17:17
PROVIDERS: Emergency Provider Emergency Medicine; PCP Nurse Practitioner Family
DX: S40.812A Abrasion of left upper arm, initial encounter (principal); R10.32 Left lower quadrant pain; V23.1 Motorcycle passenger injured in collision with car, pick-up truck or van in nontraffic accident; R07.82 Intercostal pain; Z23 Encounter for immunization
CPT/HCPCS: 99284; 99285; 90471; 36415; 74177; 80053; 83690; 86850; 86900; 86901; 90715; 70450; 71260; 72125; 80320; 83735; 84703; 85025; 85610; 85730; J3490